=== PATIENT | male | born 1965 | race Caucasian/White ===

== ENCOUNTER 2021-11-10 07:03 | Outpatient (CLI) | payer OTHER, SELFPAY ==
--- NOTE | 2021-11-10 07:30 | MR_ITS ---
WS: [id number] MRI LUMBAR SPINE NONCONTRAST HISTORY: NUMBNESS AND TINGLING IN LEFT HAND COMPARISON: None available. TECHNIQUE: Sagittal and axial multisequence imaging is submitted. Sagittal survey of the entire spine demonstrates vertebral osteophytes encroaching into the foramen i n the cervical spine at C3-4, C5-6 and C6-7. There is minimal contact upon the ventral thoracic cord at C5-6 and C6-7 by disc and osteophyte disease. Slight increase in the focal lordosis at the L5 level. L5 anterolisthesis by 4.5 mm. Moderate disc sp yocasta narrowing and desiccation with hypertrophic osteophytes at the L5-S1 level. The remaining discs are well well-preserved. Conus terminates normally at L1-2 disc level. L1-L2: Mild facet and ligamentum flavum arthritis. No stenosis. L2-L3: Mild facet and ligamentum flavum arthritis. No stenosis. L3-L4: Mild facet and ligamentum flavum arthritis. Very minimal foraminal narrowing. L4-L5: Mild annular disc bulging. Focal protrusion with annular fissure in the LEFT foramen. Moderate ligamentum flavum hypertrophy and facet arthritis with widening of the facet joints and fluid. Encro achment into the central canal with central and bilateral subarticular recess and foraminal stenosis. L5-S1: Unroofing of the disc with moderate ligamentum flavum and facet arthritis encroaching towards the central canal. No central stenosis. There is very minimal disc contact on the S1 nerve roots but no high-grade stenosis. There is also disc contact on the exiting RIGHT L5 nerve root. Paravertebral soft tissues are normal. MR/MR lumbar spine wo con* [id number] IMPRESSION: 1. Increase in the focal lordosis centered at the L5 level. 2. Advanced degenerative disc disease at L5-S1 with grade 1 spondylolisthesis of L5 and associated marrow edema along the endplates. 3. Mild disc contact on the S1 nerve roots in the RIGHT L5 exiting nerve root. 4. Mild central canal, foraminal subarticular recess stenosis at L4-5 as descr ibed above. 5. Focal disc protrusion with annular fissure in the LEFT foramen at L4-5.
== END 2021-11-10 07:04 | disposition home or self-care (01) ==
LOC: RAD 07:07
PROVIDERS: PCP Family Medicine; Visit Provider Family Medicine
DX: R20.0 Anesthesia of skin (principal); R20.2 Paresthesia of skin; M51.37 Other intervertebral disc degeneration, lumbosacral region; M43.16 Spondylolisthesis, lumbar region; M48.061 Spinal stenosis, lumbar region without neurogenic claudication; M51.26 Other intervertebral disc displacement, lumbar region
CPT/HCPCS: 72148

== ENCOUNTER 2023-01-26 06:00 | Outpatient (RCR) | payer OTHER, SELFPAY | END 2023-02-09 23:59 | disposition home or self-care (01) | LOC: MPT 06:00 | PROVIDERS: Visit Provider Nurse Practitioner | DX: M54.32 Sciatica, left side (principal); M54.59 Other low back pain | CPT/HCPCS: 97161 ==

== ENCOUNTER → 2023-02-01 08:02 | Outpatient (BNVA) | payer OTHER, SELFPAY | PROVIDERS: Visit Provider Orthopaedic Surgery | DX: M48.062 Spinal stenosis, lumbar region with neurogenic claudication (principal) | CPT/HCPCS: 72110; 99204 ==